=== PATIENT | female | born 1955 | race Caucasian/White ===

== ENCOUNTER 2019-07-10 10:10 | Emergency (ER) | payer OTHER ==
[~2019-07-10] VITALS: Ht 172.7 cm; Wt 63.5 kg
--- NOTE | 2019-07-10 10:27 | NUR ---
CAME IN FOR HEAD INJUTY LAST SUNDAY "I WAS DOING YARD WORK AND GOT HIT WITH DOLLEY". -KO, TO ER BED 9, HOOKED TO [facility], PROVIDED W WARM BLANKET, AWAITING MD GALLEGOS.
--- NOTE | 2019-07-10 10:53 | NUR ---
DR DIAZ AT BEDSIDE
[2019-07-10] MEDS ORDERED: KETOROLAC TROMETHAMINE INJ 60 MG/2 ML VIAL IM ONE (11:00)
[2019-07-10] MEDS ORDERED: KETOROLAC TROMETHAMINE INJ 30 MG/ML VIAL ONE (11:06)
--- NOTE | 2019-07-10 11:15 | NUR ---
Ric helms in [facility] - 07/10/19 at 1115 by ROGERIO Patient discharged to home in stable condition. Written and verbal after care instructions given. Patient verbalizes understanding of instruction.
--- NOTE | 2019-07-10 11:32 | NUR ---
PATIENT REFUSED SHOULDER X-RAY,R EQUESTED FOR NECK X-RAY.
--- NOTE | 2019-07-10 12:50 | NUR ---
Patient discharged to home in stable condition. Written and verbal after care instructions given. Patient verbalizes understanding of instruction.
[2019-07-10 12:52] VITALS: BP 152/81
== END 2019-07-10 12:53 | disposition home or self-care (01) ==
LOC: ER 10:12
DX: M19.011 Primary osteoarthritis, right shoulder (principal); R53.82 Chronic fatigue, unspecified; I10 Essential (primary) hypertension; I34.1 Nonrheumatic mitral (valve) prolapse; K21.9 Gastro-esophageal reflux disease without esophagitis; E11.9 Type 2 diabetes mellitus without complications; Z88.0 Allergy status to penicillin
CPT/HCPCS: 72050; 73030; 96372; 99283; J1885